=== PATIENT | female | born 1950 | race Asian ===

== ENCOUNTER 2017-05-25 15:45 | Outpatient (RCR) | payer OTHER ==
[~2017-05-25] VITALS: Ht 33 cm; Wt 0.5 kg
== END 2017-05-26 | disposition home or self-care (01) ==
LOC: PTY 15:45
DX: M70.61 Trochanteric bursitis, right hip (principal)
CPT/HCPCS: 97035; 97110; 97161; G0283

== ENCOUNTER 2017-06-08 16:00 | Outpatient (RCR) | payer OTHER | END 2017-06-25 | disposition home or self-care (01) | LOC: PTY 16:00 | DX: M70.61 Trochanteric bursitis, right hip (principal) | CPT/HCPCS: 82962; 97035; 97110; 97140; G0283 ==

== ENCOUNTER 2017-12-27 15:30 | Outpatient (RCR) | payer OTHER | END 2018-01-23 | disposition home or self-care (01) | LOC: PTY 15:30 | DX: M25.571 Pain in right ankle and joints of right foot (principal); G89.29 Other chronic pain ==